=== PATIENT | female | born 1995 | race Caucasian/White ===

== ENCOUNTER 2018-02-22 13:01 | Emergency (ER) | payer OTHER ==
[~2018-02-22] VITALS: Ht 152.4 cm; Wt 52.2 kg
[~2018-02-22 13:01] MED LIST: AUGMENTIN 875-1 EACH PO; BACTRIM DS TAB1 EACH PO; KEFLEX500 MG PO; NOHOMEMEDICATIONS; PREDNISONE50 MG PO; ULTRAM 50MG TAB50 MG PO
[2018-02-22 14:11] VITALS: BP 113/67
== END 2018-02-22 14:12 | disposition home or self-care (01) ==
LOC: M.ERS 13:01
DX: T22.40XA Corrosion of unspecified degree of shoulder and upper limb, except wrist and hand, unspecified site, initial encounter (principal); T32.0 Corrosions involving less than 10% of body surface; F17.210 Nicotine dependence, cigarettes, uncomplicated; Z88.1 Allergy status to other antibiotic agents; Z88.2 Allergy status to sulfonamides; V89.2XXA Person injured in unspecified motor-vehicle accident, traffic, initial encounter; Y93.89 Activity, other specified; Y92.89 Other specified places as the place of occurrence of the external cause; Y99.8 Other external cause status

== ENCOUNTER 2018-10-12 19:04 | Emergency (ER) | payer OTHER ==
[~2018-10-12] VITALS: Ht 152.4 cm; Wt 46.7 kg
[2018-10-12 20:20] LABS: URINE BILIRUBIN NEGATIVE (Negative); URINE BLOOD NEGATIVE (Negative); URINE CLARITY CLEAR; URINE COLOR YELLOW; URINE GLUCOSE-RANDOM NEGATIVE (Negative); URINE KETONES NEGATIVE (Negative); URINE LEUKOCYTES-REFLEX TRACE (Negative); URINE NITRITE-REFLEX NEGATIVE (Negative); URINE PROTEIN NEGATIVE (Negative); URINE UROBILINOGEN 0.2 E.U./dl (0.2-1.0)
[2018-10-12 20:22] LABS: HEMATOCRIT 40.2 % (37.0-47.0); HEMOGLOBIN 13.4 gm/dL (12.0-15.0); MCH 29.6 pg (26.0-34.0); MCHC 33.4 g/dL (28.0-37.0); MCV 88.8 fL (80.0-100.0); MPV 8.8 fl. (7.2-11.1); NUCLEATED RBCS 0 /100WBC; PLATELET COUNT* 309 thou/uL (150-400); RBC 4.52 mil/uL (4.20-5.00); RDW-CV 14.2 % (10.5-14.5); WBC 13.3 thou/uL (4.0-11.0)
[2018-10-12 20:33] LABS: SQUAMOUS >10 Many /LPF (0-3)
[2018-10-12 20:34] LABS: BACTERIA-REFLEX 1-9 Few /HPF (None Seen); CASTS None Seen /LPF (None Seen); CRYSTALS None Seen /LPF (None Seen); MUCUS 0-3 Light strn/LPF (None Seen); URINE RBC None Seen /HPF (0-2); URINE WBC-REFLEX 6-15 Few /HPF (0-5)
[2018-10-12 20:40] LABS: ALBUMIN 3.6 g/dL (3.4-5.0); CALCIUM 9.2 mg/dL (8.5-10.1); CREATININE 0.8 mg/dL (0.6-1.3); POTASSIUM 3.8 mmol/L (3.5-5.1); TOTAL BILIRUBIN 0.3 mg/dL (<0.1-1.0); TOTAL PROTEIN 8.3 g/dL (6.4-8.2)
[2018-10-12 21:26] LABS: ABSOLUTE EOSINOPHILS 0.1 thou/uL (0.0-0.7); ABSOLUTE LYMPHOCYTES 1.3 thou/uL (0.8-5.3); ABSOLUTE MONOCYTES 0.7 thou/uL (0.0-1.2); ABSOLUTE NEUTROPHILS 11.2 thou/uL (1.6-8.1)
[2018-10-12 21:27] LABS: PLATELET ESTIMATE ADEQUATE
[2018-10-12] MEDS ORDERED: ONDANSETRON HCL4 M2 PO (21:39)
[2018-10-12] MEDS ORDERED: MACROBID 100 M100 M1 PO (21:39)
[2018-10-12] MEDS ORDERED: NORCO 5-325 TA1 EACH PO (21:39)
[2018-10-12 22:01] VITALS: BP 98/54
== END 2018-10-12 22:03 | disposition home or self-care (01) ==
LOC: M.ERS 19:04
PROVIDERS: Nurse Practitioner Family; Physician Assistant
DX: N39.0 Urinary tract infection, site not specified (principal); F17.210 Nicotine dependence, cigarettes, uncomplicated; Z88.2 Allergy status to sulfonamides; Z88.1 Allergy status to other antibiotic agents

== ENCOUNTER 2019-03-08 22:52 | Emergency (ER) | payer OTHER ==
[~2019-03-08] VITALS: Ht 152.4 cm; Wt 47.6 kg
[~2019-03-08 22:52] MED LIST changes: +MACROBID 100 M100 M1 PO; +NORCO 5-325 TA1 EACH PO; +ONDANSETRON HCL4 M2 PO
[2019-03-08 23:04] VITALS: BP 115/73
[2019-03-08] MEDS ORDERED: FLEXERIL PO (23:14)
[2019-03-08] MEDS ORDERED: IBUPROFEN 400400 M1 PO (23:14)
[2019-03-08] MEDS ORDERED: ACETAMINOPHEN-1 EAC1 PO (23:14)
== END 2019-03-08 23:21 | disposition home or self-care (01) ==
LOC: M.ERS 22:52
DX: R07.81 Pleurodynia (principal); F17.210 Nicotine dependence, cigarettes, uncomplicated; Z88.1 Allergy status to other antibiotic agents; Z88.2 Allergy status to sulfonamides